=== PATIENT | male | born 1970 | race Caucasian/White ===

== ENCOUNTER 2023-07-04 15:53 | Emergency (ER) | payer OTHER, SELFPAY ==
[2023-07-04 15:54] VITALS: BP 136/84; PULSE 82; RESP 18; TEMP 35.9; O2SAT 98; BMI 35.4
[2023-07-04] MEDS: Doxycycline 100 MG CAPSULE PO (16:29)
[2023-07-04] MEDS: Cephalexin 250 MG Capsule 500 MG PO (16:29)
--- NOTE | 2023-07-04 16:35 | EX.ED.DYSGE1 ---
HPI History of Present Illness Chief Complaint: Abscess Informant: patient Narrative Narrative: Presents with a red area starting from his right hand. Patient states he has had a small skin bump in the first webspace of his right dominant hand for years. Last week it seemed to get a little irritated and red for day but then went away. It is now been getting red again for the last couple days. He went to see his doctor today. They noticed a slight red streak up his arm to about his elbow so they referred him in here. Patient states he can move his hand well. He is right-hand dominant. It does not hurt to move his hand. He has no nausea vomiting fevers or chills. He does not feel systemically ill at all. He has no history of diabetes polyuria or polydipsia. He is on no immunosuppressive meds including no prednisone. PFSH PFS Medical History Abnormal electrocardiogram Hx of renal calculi Palpitation Sinus tachycardia Home Medications aspirin 81 mg tablet,delayed release 81 mg PO DAILY@0800 09/17/17 [History Last Taken Unknown] etodolac 500 mg tablet 500 mg PO BID #60 tabs 02/21/21 [Rx Last Taken Unknown] ibuprofen 200 mg capsule 400 mg PO Q6H PRN 02/21/21 [History Last Taken Unknown] cephalexin 500 mg capsule 500 mg PO Q6 #40 CAPSULES 07/04/23 [Rx Last Taken Unknown] doxycycline monohydrate 100 mg capsule 100 mg PO BID #20 CAPSULES 07/04/23 [Rx Last Taken Unknown] Allergy/AdvReac Type Severity Reaction Status Date / Time No Known Allergies Allergy Verified 07/04/23 15:56 Surgical History Hx of cholecystectomy Social History Smoking Status: Never smoker ROS ROS ED Constitutional Constitutional ED: Denies chills, fever(s), subjective or sweats Cardiovascular Cardiovascular: Denies chest pain, palpitations or racing heartbeat Respiratory/Chest Respiratory/Chest: Denies dyspnea Gastrointestinal Gastrointestinal: Denies nausea or vomiting Musculoskeletal Musculoskeletal: Denies arthralgias, back pain, myalgias or neck pain Integumentary Reports abscess and rash Hematologic/Lymphatic Hematologic/Lymphatic: Denies easy bleeding, easy bruising or lymphadenopathy EXAM Physical Exam Narrative Exam Narrative: Is awake alert no acute distress. HEENT shows no trauma. Neck is supple. Heart is regular not tachycardic. No murmur. Lungs are clear bilaterally and breathing is easy unlabored he has normal saturation 98% on room air showing no hypoxia. Abdomen is benign. Extremities do show a blistered area that looks like it may have some white purulent fluid under it. This is about 1 cm round in his first webspace. It seems shallow. The webspace itself is not tender. It is erythematous around it. There is a subtle but clearly present red streak that goes up the dorsum of his hand across his forearm and starts heading toward the medial aspect of his elbow. It stops there. No lymph nodes are felt. There is no axillary tenderness or lymphadenopathy. Const Vital Signs: 07/04/23 15:54 Temperature 96.7 F L Temperature Source Temporal Pulse Rate 82 Respiratory Rate 18 Blood Pressure 136/84 H Blood Pressure Mean 101 Pulse Ox 98 Oxygen Delivery Method Room Air MDM MDM MDM Narrative Medical decision making narrative: Since with the patient. We discussed the option of IV antibiotics. He would prefer just to do oral. Procedure: Incision and drainage of superficial abscess/blister: The area around the blister in the left first webspace was cleansed with alcohol. This was a very shallow blister. I used an 18-gauge needle and unroofed this. We got release of some purulent material. It has an intact red base. This does not extend deeper. This was a very superficial pocket of infection. I did remove a center area of the blister so it does not really seal. We discussed care of this. He tolerated this well. No anesthesia was required. We will keep the patient on oral antibiotics. We discussed specific reasons to return that would include pain with motion of his hand, further swelling or redness, nausea vomiting inability keep meds down, fevers or overall weakness or any other concerns. Discharge Plan Triage Chief Complaint: Abscess ED Provider: Farooq Gong Dx/Rx/DC Orders Clinical Impression: Cellulitis of right upper extremity, History of incision and drainage, Abscess of hand, right Instructions: ED Abscess Incision And Drainage, ED Cellulitis Prescriptions: New doxycycline monohydrate 100 mg capsule 100 mg PO BID Qty: 20 0RF cephalexin [cephalexin] 500 mg capsule 500 mg PO Q6 Qty: 40 0RF No Action ibuprofen 200 mg capsule 400 mg PO Q6H PRN etodolac 500 mg tablet 500 mg PO BID Qty: 60 0RF aspirin 81 MG tablet 81 mg PO DAILY@0800 Primary Care Provider: Jasmin Burgos NP Referrals: Jasmin Burgos NP, [employer] [Primary Care Provider] - 3-5 Days Disposition Disposition: Home, Self Care
== END 2023-07-04 17:46 | disposition home or self-care (01) ==
PROVIDERS: Emergency Provider Emergency Medicine; PCP Nurse Practitioner Family; Visit Provider Emergency Medicine
DX: L02.511 Cutaneous abscess of right hand (principal); L03.113 Cellulitis of right upper limb
CPT/HCPCS: 10060; 99283

== ENCOUNTER → 2024-10-16 | Outpatient (CLI) | payer OTHER, SELFPAY | END | disposition home or self-care (01) | PROVIDERS: PCP Nurse Practitioner Family; Referring Provider Chiropractor; Visit Provider Chiropractor | DX: J45.909 Unspecified asthma, uncomplicated (principal) | CPT/HCPCS: 94060; 94726; 94729 ==